=== PATIENT | male | born 1955 | race Caucasian/White ===

== ENCOUNTER → 2016-08-15 | Day surgery (SDC) | payer MEDICAID ==
[~2016-08-15] MED LIST: DIAZEPAM10 MG PO; DIAZEPAM5 MG PO; KLONOPIN 0.5MG0.5 MG PO; PERCOCET 5/3251 EACH PO; PRILOSEC40 MG PO
[2016-08-15 08:40] LABS: BUN 12 mg/dL (7-18); HEMOGLOBIN 14.7 g/dL (14.1-18.0); LYMPH # 1.3 K/mm3 (0.7-4.5); LYMPH % 15.1 % (10-50)
[2016-08-15 08:46] LABS: GFR (ESTIMATED) 76 ML/MIN (>60)
--- NOTE | 2016-08-15 14:08 | RADIOLOGY REPORT PS360 ---
CARDIAC CATHETERIZATION DATE OF CATHETERIZATION:08/15/2016 1:20 PM PROCEDURES: 1. Left heart catheterization 2. Left ventriculogram 3. Selective coronary angiogram INDICATION FOR TEST: 1. Angina pectoris class IV 2. Ischemic cardiomyopathy 3. Known coronary artery disease Informed consent was obtained prior to the procedure. COMPLICATIONS: None ESTIMATED BLOOD LOSS: Less than 10 ml. TECHNIQUE: One percent lidocaine was used to anesthetize the right groin. The right femoral artery was accessed via the Seldinger technique. A 4-[place] Lucian sheath was placed in the right femoral artery. The JL-4 and JR-4 catheter was also used to perform left heart catheterization and left ventriculography. At the end of the procedure the patient was transferred to the post-op holding area in stable condition for arterial sheath removal. ANGIOGRAPHIC RESULTS: 1. The left main artery normal 2. The left anterior descending artery has a very proximal eccentric 20% stenosis preceding a stent that extends proximally into the mid segment. Both proximally and distally the stent is widely patent. Following the proximal to mid LAD stent there is a 15 mm area free of in-stent and free of disease. The diagonal artery then bifurcates which is then followed by another short drug-eluting stent in the mid LAD which is widely patent with mild concentric in-stent restenosis 3. The circumflex artery is a codominant vessel and has an ostial proximal 40% stenosis followed by a mid vessel 30-40% tubular nonflow limiting stenosis immediately proximal to a widely patent stent in the large obtuse marginal artery 4. The right coronary artery is codominant and has a long tubular smooth 20-30% distal stenosis at posada's crook 5. The DANIELS ventriculogram reveals left ventricular dilatation with ejection fraction of 40% 6. The left ventricular end-diastolic pressure less than 10 mmHg IMPRESSION: 1. Coronary artery disease as described above 2. Mild left ventricular dilatation with mildly reduced ejection fraction 3. Normal left ventricular end-diastolic pressure PLAN: 1. Continue dual antiplatelet therapy 2. Treatment of endothelial disease/endothelial dysfunction 3. Maximize antianginal's
[2016-08-15 17:25] VITALS: BP 113/64
== END ==
LOC: CATHLAB 08:04
PROVIDERS: Internal Medicine
PROC: B2111ZZ Fluoroscopy of Multiple Coronary Arteries using Low Osmolar Contrast (ICD-10-PCS; 2016-08-15)
PROC: B2151ZZ Fluoroscopy of Left Heart using Low Osmolar Contrast (ICD-10-PCS; 2016-08-15)
PROC: 4A023N7 Measurement of Cardiac Sampling and Pressure, Left Heart, Percutaneous Approach (ICD-10-PCS; principal; 2016-08-15 10:30)
DX: I25.119 Atherosclerotic heart disease of native coronary artery with unspecified angina pectoris (principal); I25.5 Ischemic cardiomyopathy
CPT/HCPCS: C1725; C1769; J1644; Q9967

== ENCOUNTER → 2017-01-30 | Outpatient (CLI) | payer MEDICAID ==
--- NOTE | 2017-01-30 11:52 | RADIOLOGY REPORT PS360 ---
CHEST(2 VIEWS-NOT PORTABLE) COMPARISON: PA and lateral chest 07/26/2016 HISTORY: Coronary artery disease, suspected cardiomyopathy, weight loss TECHNIQUE: PA and lateral chest FINDINGS: The lung garner are well expanded and appear clear of infiltrate. The cardiac silhouette is normal in size. There is a coronary artery stent noted. The vascularity is normal and is no pleural fluid. There is been previous anterior cervical fusion lower cervical spine. IMPRESSION: Nonacute chest findings
== END ==
LOC: RAD 11:17
DX: I25.10 Atherosclerotic heart disease of native coronary artery without angina pectoris (principal); I42.9 Cardiomyopathy, unspecified; E78.5 Hyperlipidemia, unspecified; R63.4 Abnormal weight loss; R63.0 Anorexia; Z95.5 Presence of coronary angioplasty implant and graft